=== PATIENT | female | born 1990 | race Caucasian/White ===

== ENCOUNTER 2023-04-10 01:11 | Emergency (ER) | payer SELFPAY ==
[~2023-04-10 01:11] MED LIST: CYCL5TAB MT; NAPR500T7 MT
[2023-04-10 01:33] VITALS: PULSE 82
== END 2023-04-10 04:34 | disposition left against medical advice (07) ==
LOC: ER 01:11
DX: Z53.21 Procedure and treatment not carried out due to patient leaving prior to being seen by health care provider (principal)
CPT/HCPCS: 99281